=== PATIENT | female | born 1960 | race Caucasian/White ===

== ENCOUNTER 2018-07-17 09:33 | Emergency (ER) | payer MEDICARE, MEDICAID ==
[~2018-07-17] VITALS: Ht 170.2 cm; Wt 55.5 kg
[~2018-07-17 09:33] MED LIST: CLIN-96 PO; HYDR-4383 PO; ONDA4TAB6 PO
[2018-07-17] MEDS ORDERED: acetaminophen 325mg tablet PO STA (10:00)
[2018-07-17] MEDS ORDERED: normal saline 1000ML IV soln IV ONE (10:00)
[2018-07-17] MEDS ORDERED: ondansetron/PF 4mg/2ml inj IV ONE (10:30)
[2018-07-17] MEDS ORDERED: morphine 4 MG/ML inj SYRINge IV PRN (10:30)
[2018-07-17 10:36] LABS: BASOPHILS % (AUTO) 0.4 % (0-1); EOSINOPHILS # (AUTO) 0.2 X10'3 (0-0.9); EOSINOPHILS % (AUTO) 1.9 % (0-6); HEMATOCRIT 40.9 % (35.0-45.0); HEMOGLOBIN 13.9 g/dl (12.0-16.0); LYMPHOCYTES # (AUTO) 0.2 X10'3 (1.1-4.8); LYMPHOCYTES % (AUTO) 2.4 % (21-51); MEAN CORPUSCULAR VOLUME 91.3 FL (78-98); MONOCYTES # (AUTO) 0.4 X10'3 (0-0.9); MONOCYTES % (AUTO) 4.4 % (2-12); NEUTROPHILS # (AUTO) 7.4 X10'3 (1.8-7.7); NEUTROPHILS % (AUTO) 90.9 % (42-75); PLATELET COUNT 234 X10'3 (140-440); RED BLOOD COUNT 4.48 X10'6 (4.20-5.60); RED CELL DISTRIBUTION WIDTH 12.5 % (11.5-14.5); WHITE BLOOD COUNT 8.2 X10'3 (4.5-11.0)
[2018-07-17 10:54] LABS: PARTIAL THROMBOPLASTIN TIME 28 SECONDS (22-32); PROTHROMBIN TIME 9.8 SECONDS (9.0-12.0)
[2018-07-17 11:02] LABS: ALANINE AMINOTRANSFERASE 16 U/L (12-78); ALKALINE PHOSPHATASE 70 IU/L (46-116); ANION GAP 10 (8-16); ASPARTATE AMINO TRANSFERASE 23 U/L (10-37); BILIRUBIN,TOTAL 1.1 MG/DL (0.1-1.0); BLOOD UREA NITROGEN 12 MG/DL (7-18); BUN/CREATININE RATIO 18.5 (6.6-38.0); CALCIUM 9.6 MG/DL (8.5-10.1); CHLORIDE 103 MMOL/L (99-107); CREATININE 0.65 MG/DL (0.40-0.90); GLUCOSE 135 MG/DL (70-104); LIPASE 430 U/L (73-393); POTASSIUM 4.2 MMOL/L (3.5-5.1); SODIUM 139 MMOL/L (135-145); TOTAL CARBON DIOXIDE 25.7 MMOL/L (24-32); TOTAL PROTEIN 8.2 G/DL (6.4-8.2); eGFR > 90 ML/MIN
[2018-07-17] MEDS ORDERED: proCHLORperazine 10 MG/2 ml inj IV ONE (11:05)
[2018-07-17 11:40] LABS: CLARITY,URINE CLEAR (Clear); COLOR,URINE YELLOW (Yellow); GLUCOSE, URINE NEGATIVE (Neg); KETONES,URINE NEGATIVE (Neg); LEUKOCYTE ESTERASE ,URINE NEGATIVE (Neg); NITRITES, URINE NEGATIVE (Neg); OCCULT BLOOD,URINE TRACE-LYSED (Neg); PROTEIN,URINE NEGATIVE (Neg)
[2018-07-17 11:43] LABS: UA COLLECTION TYPE CLN CATCH MIDSTREAM
[2018-07-17 12:03] LABS: BACTERIA,URINE FEW /HPF (Neg); SQUAMOUS EPITHELIAL CELL,UR FEW /LPF (FEW)
[2018-07-17 12:06] LABS: RBC,URINE 0-2 /HPF (0-2); WBC,URINE 0-4 /HPF (0-4)
[2018-07-17 13:08] VITALS: BP 100/59
== END 2018-07-17 13:40 | disposition home or self-care (01) ==
LOC: ER 09:34
DX: R10.9 Unspecified abdominal pain (principal); R50.9 Fever, unspecified; G89.29 Other chronic pain; M79.7 Fibromyalgia; Z87.442 Personal history of urinary calculi; Z88.8 Allergy status to other drugs, medicaments and biological substances; Z88.0 Allergy status to penicillin; Z88.2 Allergy status to sulfonamides
CPT/HCPCS: 36415; 71045; 74176; 80053; 81001; 83605; 83690; 84145; 85025; 85610; 85730; 87040; 96374; 96375; 99284; J0780; J2270; J2405; J7030

== ENCOUNTER 2021-04-02 10:34 | Emergency (ER) | payer MEDICARE, MEDICAID ==
[~2021-04-02] VITALS: Ht 170.2 cm; Wt 68.0 kg
[~2021-04-02 10:34] MED LIST changes: -CLIN-96 PO; +CLIN-97 PO
[2021-04-02] MEDS ORDERED: ondansetron/PF 4mg/2ml inj IV ONE (10:55)
[2021-04-02] MEDS: morphine 4 MG/ML inj SYRINge IV PRN ×2 (11:14→14:06)
[2021-04-02] MEDS ORDERED: PLEC3TAB2 PO (11:20)
[2021-04-02] MEDS ORDERED: LINA290C PO (11:20)
[2021-04-02] MEDS ORDERED: ZINC50TA67 PO (11:24)
[2021-04-02] MEDS ORDERED: [UNRECOGNIZED DRUG - CODE] (11:24)
[2021-04-02] MEDS ORDERED: CHOL500050 PO (11:24)
[2021-04-02] MEDS ORDERED: [UNRECOGNIZED DRUG - CODE] (11:24)
[2021-04-02] MEDS ORDERED: GOLD325C2 (11:24)
[2021-04-02] MEDS ORDERED: VIT1TAB.7 PO (11:24)
[2021-04-02 11:38] LABS: BASOPHILS # (AUTO) 0.1 X10'3 (0-0.2); BASOPHILS % (AUTO) 0.9 % (0-1); EOSINOPHILS # (AUTO) 0.1 X10'3 (0-0.9); EOSINOPHILS % (AUTO) 0.8 % (0-6); HEMATOCRIT 37.4 % (35.0-45.0); HEMOGLOBIN 12.8 g/dl (12.0-16.0); LYMPHOCYTES # (AUTO) 1.8 X10'3 (1.1-4.8); LYMPHOCYTES % (AUTO) 19.1 % (21-51); MEAN CORPUSCULAR HGB CONC 34.3 g/dL (33.0-36.5); MEAN CORPUSCULAR VOLUME 96.3 FL (78-98); MEAN PLATELET VOLUME 8.3 FL (7.4-10.4); MONOCYTES # (AUTO) 1.2 X10'3 (0-0.9); MONOCYTES % (AUTO) 12.6 % (2-12); NEUTROPHILS # (AUTO) 6.4 X10'3 (1.8-7.7); NEUTROPHILS % (AUTO) 66.6 % (42-75); PLATELET COUNT 311 X10'3 (140-440); RED BLOOD COUNT 3.88 X10'6 (4.20-5.60); RED CELL DISTRIBUTION WIDTH 14.2 % (11.5-14.5); WHITE BLOOD COUNT 9.6 X10'3 (4.5-11.0)
[2021-04-02 11:49] LABS: ALANINE AMINOTRANSFERASE 14 U/L (12-78); ALBUMIN 3.3 G/DL (3.4-5.0); ALBUMIN/GLOBULIN RATIO 0.8 (1.1-1.5); ALKALINE PHOSPHATASE 83 IU/L (46-116); ANION GAP 7 (8-16); ASPARTATE AMINO TRANSFERASE 13 U/L (10-37); BILIRUBIN,TOTAL 0.3 MG/DL (0.1-1.0); BLOOD UREA NITROGEN 7 MG/DL (7-18); BUN/CREATININE RATIO 12.7 (6.6-38.0); CALCIUM 8.8 MG/DL (8.5-10.1); CHLORIDE 103 MMOL/L (99-107); CREATININE 0.55 MG/DL (0.40-0.90); GLUCOSE 101 MG/DL (70-104); POTASSIUM 3.4 MMOL/L (3.5-5.1); SODIUM 140 MMOL/L (135-145); TOTAL CARBON DIOXIDE 30.1 MMOL/L (24-32); TOTAL PROTEIN 7.6 G/DL (6.4-8.2); eGFR > 90 ML/MIN
[2021-04-02 11:54] LABS: LIPASE < 50 U/L (73-393)
[2021-04-02 12:13] LABS: CLARITY,URINE SLIGHTLY CLOUDY (Clear); COLOR,URINE YELLOW (Yellow); GLUCOSE, URINE NEGATIVE (Neg); KETONES,URINE NEGATIVE (Neg); LEUKOCYTE ESTERASE ,URINE MODERATE (Neg); NITRITES, URINE NEGATIVE (Neg); OCCULT BLOOD,URINE TRACE-LYSED (Neg); PH,URINE 7.5 (4.8-8.0); PROTEIN,URINE NEGATIVE (Neg); UROBILINOGEN,URINE 0.2 E.U/dL (0.2-1.0)
[2021-04-02 12:18] LABS: UA COLLECTION TYPE CLN CATCH MIDSTREAM
[2021-04-02 12:19] LABS: RBC,URINE 0-2 /HPF (0-2); WBC,URINE 20-30 /HPF (0-4)
--- NOTE | 2021-04-02 12:19 | NUR ---
urine was rejected for culture
[2021-04-02 12:20] LABS: BACTERIA,URINE 3+ /HPF (Neg); MUCUS STRANDS MODERATE /LPF (Neg); SQUAMOUS EPITHELIAL CELL,UR MANY /LPF (FEW)
[2021-04-02] MEDS ORDERED: metroNIDAZOLE 500mg tablet PO ONE (12:35)
[2021-04-02] MEDS ORDERED: ciprofloxacin 250mg tablet PO ONE (12:35)
[2021-04-02] MEDS ORDERED: DICY10CA88 PO (13:09)
[2021-04-02] MEDS ORDERED: HYDR-3964 PO (13:09)
[2021-04-02] MEDS ORDERED: METR-159 PO (13:09)
[2021-04-02] MEDS ORDERED: ONDA4TAB6 PO (13:09)
[2021-04-02] MEDS ORDERED: CIPR-259 PO (13:09)
[2021-04-02] MEDS ORDERED: HYDROcodone/acetaminophen 5mg/325mg tablet PO ONE (17:30)
[2021-04-02 18:15] VITALS: BP 94/78
== END 2021-04-02 18:16 | disposition home or self-care (01) ==
LOC: ER 10:34
DX: N39.0 Urinary tract infection, site not specified (principal); Z87.442 Personal history of urinary calculi; Z20.822 Contact with and (suspected) exposure to COVID-19; K57.32 Diverticulitis of large intestine without perforation or abscess without bleeding; R11.0 Nausea; M79.7 Fibromyalgia; Z87.19 Personal history of other diseases of the digestive system; G89.29 Other chronic pain; Z90.411 Acquired partial absence of pancreas; Z87.440 Personal history of urinary (tract) infections; Z79.2 Long term (current) use of antibiotics; Z79.899 Other long term (current) drug therapy; Z88.0 Allergy status to penicillin; Z88.2 Allergy status to sulfonamides; Z88.8 Allergy status to other drugs, medicaments and biological substances
CPT/HCPCS: 36415; 74176; 80053; 81001; 83690; 84484; 85025; 87635; 96374; 96375; 96376; 99285; C9803; J2270; J2405; J3490

== ENCOUNTER 2021-04-04 18:30 | Emergency (ER) | payer MEDICARE, MEDICAID ==
[~2021-04-04] VITALS: Ht 170.2 cm; Wt 52.7 kg
[~2021-04-04 18:30] MED LIST changes: +CHOL500050 PO; +CIPR-259 PO; -CLIN-97 PO; +DICY10CA88 PO; +GOLD325C2; +HYDR-3964 PO; -HYDR-4383 PO; +LINA290C PO; +METR-159 PO; +PLEC3TAB2 PO; +VIT1TAB.7 PO; +ZINC50TA67 PO; +[UNRECOGNIZED DRUG - CODE]; +[UNRECOGNIZED DRUG - CODE]
[2021-04-04 18:37] VITALS: BP 107/66
[2021-04-04 19:33] LABS: BASOPHILS # (AUTO) 0.1 X10'3 (0-0.2); EOSINOPHILS # (AUTO) 0.1 X10'3 (0-0.9); EOSINOPHILS % (AUTO) 0.7 % (0-6); HEMATOCRIT 36.1 % (35.0-45.0); HEMOGLOBIN 12.3 g/dl (12.0-16.0); LYMPHOCYTES # (AUTO) 1.6 X10'3 (1.1-4.8); LYMPHOCYTES % (AUTO) 15.7 % (21-51); MEAN CORPUSCULAR HEMOGLOBIN 32.4 PG (27.0-31.0); MEAN CORPUSCULAR HGB CONC 34.1 g/dL (33.0-36.5); MEAN PLATELET VOLUME 8.3 FL (7.4-10.4); MONOCYTES # (AUTO) 1.1 X10'3 (0-0.9); MONOCYTES % (AUTO) 10.9 % (2-12); NEUTROPHILS # (AUTO) 7.5 X10'3 (1.8-7.7); NEUTROPHILS % (AUTO) 71.7 % (42-75); PLATELET COUNT 349 X10'3 (140-440); RED CELL DISTRIBUTION WIDTH 13.9 % (11.5-14.5); WHITE BLOOD COUNT 10.4 X10'3 (4.5-11.0)
[2021-04-04 19:48] LABS: ALANINE AMINOTRANSFERASE 18 U/L (12-78); ALBUMIN 3.2 G/DL (3.4-5.0); ALBUMIN/GLOBULIN RATIO 0.7 (1.1-1.5); ALKALINE PHOSPHATASE 75 IU/L (46-116); ANION GAP 10 (8-16); ASPARTATE AMINO TRANSFERASE 14 U/L (10-37); BILIRUBIN,TOTAL 0.4 MG/DL (0.1-1.0); BLOOD UREA NITROGEN 8 MG/DL (7-18); BUN/CREATININE RATIO 12.1 (6.6-38.0); CALCIUM 8.8 MG/DL (8.5-10.1); CHLORIDE 102 MMOL/L (99-107); CREATININE 0.66 MG/DL (0.40-0.90); GLUCOSE 119 MG/DL (70-104); POTASSIUM 3.4 MMOL/L (3.5-5.1); SODIUM 138 MMOL/L (135-145); TOTAL CARBON DIOXIDE 26.1 MMOL/L (24-32); TOTAL PROTEIN 7.6 G/DL (6.4-8.2); eGFR > 90 ML/MIN
[2021-04-04] MEDS ORDERED: ondansetron/PF 4mg/2ml inj IV ONE ×2 (21:45→23:35)
[2021-04-04] MEDS ORDERED: morphine 4 MG/ML inj SYRINge IV ONE ×2 (21:45→23:35)
[2021-04-04] MEDS ORDERED: iohexol 300mg/ml 100ml inj. ONE (21:53)
[2021-04-04] MEDS ORDERED: OXYC-149 PO (23:23)
[2021-04-04] MEDS ORDERED: ONDA4TAB6 PO (23:23)
== END 2021-04-05 00:59 | disposition home or self-care (01) ==
LOC: ER 18:31
DX: K57.92 Diverticulitis of intestine, part unspecified, without perforation or abscess without bleeding (principal); G89.29 Other chronic pain; M79.7 Fibromyalgia; Z79.899 Other long term (current) drug therapy; Z87.440 Personal history of urinary (tract) infections; Z87.442 Personal history of urinary calculi; Z79.2 Long term (current) use of antibiotics; Z88.0 Allergy status to penicillin; Z88.8 Allergy status to other drugs, medicaments and biological substances
CPT/HCPCS: 36415; 74177; 80053; 85025; 96374; 96375; 96376; 99285; J2270; J2405; Q9967

== ENCOUNTER 2024-03-17 08:00 | Outpatient (CLI) | payer MEDICARE, MEDICAID ==
[~2024-03-17 08:00] MED LIST changes: -CHOL500050 PO; -CIPR-259 PO; -DICY10CA88 PO; -GOLD325C2; -HYDR-3964 PO; +LEVO-65 PO; -LINA290C PO; -ONDA4TAB6 PO; -VIT1TAB.7 PO; -ZINC50TA67 PO; -[UNRECOGNIZED DRUG - CODE]; -[UNRECOGNIZED DRUG - CODE]
[2024-03-17] MEDS ORDERED: HYDR-3964 PO (16:23)
[2024-03-17 16:32] LABS: BASOPHILS # (AUTO) 0.1 X10'3 (0-0.2); BASOPHILS % (AUTO) 0.7 % (0-1); EOSINOPHILS # (AUTO) 0.2 X10'3 (0-0.9); EOSINOPHILS % (AUTO) 1.1 % (0-6); LYMPHOCYTES # (AUTO) 3.7 X10'3 (1.1-4.8); LYMPHOCYTES % (AUTO) 21.5 % (21-51); MEAN CORPUSCULAR HEMOGLOBIN 32.2 PG (27.0-31.0); MEAN CORPUSCULAR HGB CONC 33.4 g/dL (33.0-36.5); MEAN CORPUSCULAR VOLUME 96.4 FL (78-98); MEAN PLATELET VOLUME 8.5 FL (7.4-10.4); MONOCYTES # (AUTO) 1.4 X10'3 (0-0.9); NEUTROPHILS # (AUTO) 11.9 X10'3 (1.8-7.7); NEUTROPHILS % (AUTO) 68.7 % (42-75); PRE OP HEMATOCRIT 36.3 % (35.0-45.0); PRE OP HEMOGLOBIN 12.1 g/dL (12.0-16.0); PRE OP PLATELET COUNT 272 X10'3 (140-440); RED BLOOD COUNT 3.77 X10'6 (4.20-5.60); RED CELL DISTRIBUTION WIDTH 13.1 % (11.5-14.5)
[2024-03-17 16:38] LABS: PRE OP WHITE BLOOD COUNT 17.3 10'3 (4.8-10.8)
[2024-03-17 16:43] LABS: PRE OP PROTIME 10.4 SECONDS (9.0-12.0)
[2024-03-17 16:45] LABS: ALBUMIN 3.9 G/DL (3.4-5.0); ALBUMIN/GLOBULIN RATIO 1.1 (1.1-1.5); ALKALINE PHOSPHATASE 61 IU/L (46-116); BLOOD UREA NITROGEN 16 MG/DL (7-18); BUN/CREATININE RATIO 26.2 (10.0-20.0); CALCIUM 9.2 MG/DL (8.5-10.1); CHLORIDE 105 MMOL/L (99-107); CREATININE 0.61 MG/DL (0.40-0.90); PRE OP ALT 21 U/L (30-65); PRE OP ANION GAP 9 (8-16); PRE OP AST 18 U/L (10-37); PRE OP BILIRUB, TOTAL 0.3 MG/DL (0.0-1.0); PRE OP GLUCOSE 95 MG/DL (70-104); PRE OP SODIUM 142 MMOL/L (135-145); TOTAL CARBON DIOXIDE 28.5 MMOL/L (24-32); TOTAL PROTEIN 7.5 G/DL (6.4-8.2); eGFR > 90 ML/MIN
== END 2024-03-17 23:00 | disposition home or self-care (01) ==
LOC: LAB 08:00 → EDSTATUS 03-24 13:30
PROVIDERS: ATTEND Specialist
DX: Z01.818 Encounter for other preprocedural examination (principal); M25.511 Pain in right shoulder; M19.019 Primary osteoarthritis, unspecified shoulder
CPT/HCPCS: 36415; 71046; 80053; 85025; 85610; 85730; 86885; 86900; 86901; 87081

== ENCOUNTER 2024-09-16 09:05 | Outpatient (CLI) | payer MEDICARE, MEDICAID ==
[~2024-09-16 09:05] MED LIST changes: +HYDR-3964 PO; -LEVO-65 PO; -METR-159 PO; -PLEC3TAB2 PO
--- NOTE | 2024-09-16 16:18 | RADIOLOGY REPORT ---
Procedure: MR MRI LOWER EXTREMITY LEFT 09/16/2024 09:30 AM INDICATION: PAIN IN LEFT KNEE COMPARISON: None TECHNIQUE: MRI was performed utilizing multiple appropriate imaging planes and pulse sequences. FINDINGS: Medial meniscus: Unremarkable. Lateral meniscus: Unremarkable. Anterior cruciate ligament: Unremarkable. Posterior cruciate ligament: Unremarkable. Medial collateral ligament: Unremarkable. Lateral stabilizers: Unremarkable. Extensor mechanism: Unremarkable. Pes anserine Tendons: Unremarkable. Medial compartment: Unremarkable. Lateral compartment: Unremarkable. Patellofemoral compartment: Full-thickness loss of articular cartilage over lateral patellar facet an d median ridge. Patella Angela. Bones: No suspicious lesion. Joint Effusion: Small. Several subcentimeter intra-articular loose bodies in the posterior joint spa ce noted. Popliteal fossa: No Garcia's cyst. Other: None. IMPRESSION: 1. 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 2. Small suprapatellar joint effusion several subcentimeter loose body in the posterior joint space.
== END 2024-09-16 23:59 | disposition home or self-care (01) ==
LOC: MRI02 09:05
PROVIDERS: ATTEND Family Medicine Sports Medicine
DX: M25.462 Effusion, left knee (principal); M23.42 Loose body in knee, left knee; M94.262 Chondromalacia, left knee; M25.561 Pain in right knee; M17.11 Unilateral primary osteoarthritis, right knee; M25.511 Pain in right shoulder; M25.562 Pain in left knee; M19.011 Primary osteoarthritis, right shoulder
CPT/HCPCS: 73721